=== PATIENT | female | born 1940 | race Caucasian/White ===

== ENCOUNTER 2017-04-11 16:16 | Emergency (ER) | payer MEDICARE, OTHER ==
[~2017-04-11] VITALS: Ht 167.6 cm; Wt 95.7 kg
[2017-04-11 16:25] VITALS: BP 147/79; TEMP 97.4
[2017-04-11 18:27] LABS: BASO % 0.3 % (0.0-2.0); EOS # 0.2 (0.0-0.7); EOS % 3.8 % (0-4.0); GRAN # 2.5 (1.4-6.5); GRAN % 61.3 % (42.2-75.2); LYMPH % 25.8 % (20.0-51.0); MEAN CELL VOLUME 77 fl (80.0-100.0); MEAN CORPUSCULAR HGB CONC 30 g/dl (33.0-37.0); MONO # 0.3 (0.1-0.6); MONO % 8.5 % (1.7-9.3); PLATELET COUNT 296 K/mm3 (130-400); RED BLOOD COUNT 4.33 M/mm3 (4.10-5.30); REDCELL DISTRIBUTION WIDTH-CV 28.3 % (11.5-14.5)
[2017-04-11 18:28] LABS: HEMATOCRIT 33.4 % (37.0-47.0); HEMOGLOBIN 9.9 g/dl (12.5-16.0); MEAN CORPUSCULAR HEMOGLOBIN 23 pg (27.0-31.0)
[2017-04-11 18:38] LABS: ALANINE AMINOTRANSFERASE 33 U/L (9-52); ALBUMIN 4.4 gm/dL (3.5-5.0); ALKALINE PHOSPHATASE 90 U/L (50-136); ANION GAP 11 mmol/L (7-16); AST,SGOT 17 U/L (15-37); BILIRUBIN,TOTAL 0.3 mg/dL (0.0-1.0); BLOOD UREA NITROGEN 41 mg/dL (7-17); C-REACTIVE PROTEIN < 0.5 mg/dL (0.0-0.9); CARBON DIOXIDE 16 mmol/L (22-30); CHLORIDE 112 mmol/L (98-107); CREATINE KINASE 33 U/L (30-135); CREATININE, serum 2.78 mg/dL (0.52-1.25); GLUCOSE 97 mg/dL (74-106); POTASSIUM 5.5 mmol/L (3.4-5.0); SODIUM 139 mmol/L (137-145); TOTAL PROTEIN 7.1 gm/dL (6.4-8.2)
[2017-04-11 18:42] LABS: COLLECTION METHOD CATHETER
[2017-04-11 18:48] LABS: PH 5 (5-8); SQUAMOUS EPITHELIAL None Seen /hpf; URINE APPEARANCE Clear; URINE BACTERIA None Seen /hpf; URINE BILIRUBIN Negative (NEGATIVE); URINE BLOOD Negative (NEGATIVE); URINE COLOR Yellow; URINE GLUCOSE Negative (NEGATIVE); URINE KETONE Negative (NEGATIVE); URINE LEUKOCYTE ESTERASE Negative (NEGATIVE); URINE NITRATE Negative (NEGATIVE); URINE PROTEIN(semi-quant) Negative (NEGATIVE); URINE RBC 0-2 /hpf; URINE UROBILINOGEN Negative (NEGATIVE)
[2017-04-11 18:48] LABS: TROPONIN-I < 0.012 ng/mL (0.000-0.034)
[2017-04-11] MEDS ORDERED: PRILOSEC 20MG20 MG PO (19:00)
[2017-04-11] MEDS ORDERED: METHOTREXA2.5 MG/TAB PO (19:01)
[2017-04-11] MEDS ORDERED: PRINIVIL5 MG PO (19:02)
[2017-04-11] MEDS ORDERED: REGLAN 10MG10 MG/TAB PO (19:02)
[2017-04-11] MEDS ORDERED: PRAVACHOL10 MG PO (19:02)
[2017-04-11] MEDS ORDERED: FOLIC ACID 11 MG/TA1 PO (19:02)
[2017-04-11] MEDS ORDERED: PLENDIL10 MG PO (19:03)
[2017-04-11] MEDS ORDERED: CIPRO 500MG TA500 MG PO (19:03)
[2017-04-11] MEDS ORDERED: ASPIRIN 81M81 MG/TA2 PO (19:03)
[2017-04-11] MEDS ORDERED: HECTOROL0.5 MCG PO (19:03)
[2017-04-11] MEDS ORDERED: ZOFRAN 4MG T4 MG/TAB PO (19:25)
[2017-04-11 19:40] VITALS: PULSE 72
== END 2017-04-11 19:42 | disposition home or self-care (01) ==
LOC: COL.ER 16:16
PROVIDERS: Emergency Medicine
DX: I12.9 Hypertensive chronic kidney disease with stage 1 through stage 4 chronic kidney disease, or unspecified chronic kidney disease (principal); N18.9 Chronic kidney disease, unspecified; E78.00 Pure hypercholesterolemia, unspecified; K21.9 Gastro-esophageal reflux disease without esophagitis; Z79.82 Long term (current) use of aspirin
CPT/HCPCS: J2405; J7030

== ENCOUNTER 2017-04-16 13:51 | Outpatient (RCR) | payer MEDICARE, OTHER ==
[~2017-04-16] VITALS: Ht 167.6 cm; Wt 96.1 kg
[~2017-04-16 13:51] MED LIST: ASPIRIN 81M81 MG/TA2 PO; CIPRO 500MG TA500 MG PO; FOLIC ACID 11 MG/TA1 PO; HECTOROL0.5 MCG PO; METHOTREXA2.5 MG/TAB PO; PLENDIL10 MG PO; PRAVACHOL10 MG PO; PRILOSEC 20MG20 MG PO; PRINIVIL5 MG PO; REGLAN 10MG10 MG/TAB PO; ZOFRAN 4MG T4 MG/TAB PO
[2017-04-16 14:10] VITALS: BP 130/52; PULSE 94; TEMP 97.7
[2017-04-17] MEDS ORDERED: OMNICEF 300MG300 MG PO (11:42)
== END 2017-07-15 | disposition home or self-care (01) ==
LOC: EUO
DX: D50.9 Iron deficiency anemia, unspecified (principal)
CPT/HCPCS: J2916; J7050

== ENCOUNTER 2017-04-16 17:43 | Observation (INO) | payer MEDICARE, OTHER ==
[~2017-04-16] VITALS: Ht 167.6 cm; Wt 97.0 kg
[2017-04-16 18:34] LABS: BASO % 0.2 % (0.0-2.0); EOS # 0.3 (0.0-0.7); EOS % 4.9 % (0-4.0); GRAN # 2.9 (1.4-6.5); GRAN % 46.6 % (42.2-75.2); HEMATOCRIT 41.2 % (37.0-47.0); LYMPH % 32.9 % (20.0-51.0); MEAN CELL VOLUME 79 fl (80.0-100.0); MEAN CORPUSCULAR HEMOGLOBIN 23 pg (27.0-31.0); MEAN CORPUSCULAR HGB CONC 29 g/dl (33.0-37.0); MONO # 0.9 (0.1-0.6); MONO % 15.1 % (1.7-9.3); PLATELET COUNT 367 K/mm3 (130-400); RED BLOOD COUNT 5.23 M/mm3 (4.10-5.30); REDCELL DISTRIBUTION WIDTH-CV 29.2 % (11.5-14.5)
[2017-04-16 18:36] LABS: ALANINE AMINOTRANSFERASE 23 U/L (9-52); ALKALINE PHOSPHATASE 98 U/L (50-136); ANION GAP 12 mmol/L (7-16); AST,SGOT 22 U/L (15-37); BILIRUBIN,TOTAL 0.5 mg/dL (0.0-1.0); BLOOD UREA NITROGEN 30 mg/dL (7-17); C-REACTIVE PROTEIN 0.7 mg/dL (0.0-0.9); CALCIUM 9.5 mg/dL (8.4-10.2); CARBON DIOXIDE 15 mmol/L (22-30); CHLORIDE 112 mmol/L (98-107); CREATININE, serum 2.48 mg/dL (0.52-1.25); GLUCOSE 135 mg/dL (74-106); POTASSIUM 4.8 mmol/L (3.4-5.0); SODIUM 139 mmol/L (137-145); TOTAL PROTEIN 6.7 gm/dL (6.4-8.2)
[2017-04-16 18:45] LABS: TROPONIN-I < 0.012 ng/mL (0.000-0.034)
[2017-04-16 21:42] LABS: MAGNESIUM 2.1 mg/dL (1.6-2.3)
[2017-04-16 21:44] LABS: COLLECTION METHOD CLEAN CATCH
[2017-04-16 21:56] LABS: MUCOUS Present /lpf; PH 5 (5-8); URINE APPEARANCE Cloudy; URINE BACTERIA Rare /hpf; URINE BILIRUBIN Negative (NEGATIVE); URINE BLOOD 1+ (NEGATIVE); URINE COLOR Yellow; URINE GLUCOSE Negative (NEGATIVE); URINE KETONE Negative (NEGATIVE); URINE LEUKOCYTE ESTERASE 3+ (NEGATIVE); URINE NITRATE Negative (NEGATIVE); URINE PROTEIN(semi-quant) 1+ (NEGATIVE); URINE UROBILINOGEN Negative (NEGATIVE)
[2017-04-16 22:06] VITALS: BP 155/72; PULSE 87; TEMP 98.5
[2017-04-16 23:30] VITALS: BP 152/61; PULSE 94; TEMP 98
[2017-04-17 03:41] VITALS: BP 134/56; PULSE 77; TEMP 98.2
[2017-04-17 06:45] VITALS: BP 150/66
[2017-04-17 07:20] LABS: GRAN # 4.9 (1.4-6.5); GRAN % 89.5 % (42.2-75.2); LYMPH # 0.5 (1.2-3.4); LYMPH % 8.3 % (20.0-51.0); MEAN CELL VOLUME 80 fl (80.0-100.0); MEAN CORPUSCULAR HGB CONC 29 g/dl (33.0-37.0); MONO # 0.1 (0.1-0.6); PLATELET COUNT 287 K/mm3 (130-400); RED BLOOD COUNT 4.15 M/mm3 (4.10-5.30); REDCELL DISTRIBUTION WIDTH-CV 28.9 % (11.5-14.5)
[2017-04-17 07:32] LABS: CALCIUM 8.7 mg/dL (8.4-10.2); CREATININE, serum 2.27 mg/dL (0.52-1.25); POTASSIUM 5.2 mmol/L (3.4-5.0)
[2017-04-17 07:34] LABS: HEMOGLOBIN 9.7 g/dl (12.5-16.0); MEAN CORPUSCULAR HEMOGLOBIN 23 pg (27.0-31.0)
[2017-04-17 07:42] VITALS: BP 147/91; PULSE 78; TEMP 97.5
[2017-04-17 11:42] VITALS: BP 152/68; PULSE 74; TEMP 97.4
[2017-04-17] MEDS ORDERED: OMNICEF 300MG300 MG PO (11:42)
[2017-04-17 11:44] VITALS: BP 145/62; PULSE 74
[2017-04-17 11:45] VITALS: BP 151/71; PULSE 91
== END 2017-04-17 13:33 | disposition home or self-care (01) ==
LOC: COL.ER 17:43 → MEDICAL 20:41
PROVIDERS: Emergency Medicine; Nurse Practitioner Family
DX: R53.83 Other fatigue (principal); R53.81 Other malaise; E78.5 Hyperlipidemia, unspecified; I12.9 Hypertensive chronic kidney disease with stage 1 through stage 4 chronic kidney disease, or unspecified chronic kidney disease; K21.9 Gastro-esophageal reflux disease without esophagitis; D64.9 Anemia, unspecified; M06.9 Rheumatoid arthritis, unspecified; N39.0 Urinary tract infection, site not specified; I95.1 Orthostatic hypotension; R55 Syncope and collapse; E87.5 Hyperkalemia; Z79.82 Long term (current) use of aspirin; Z88.8 Allergy status to other drugs, medicaments and biological substances; Z88.6 Allergy status to analgesic agent; Z82.61 Family history of arthritis
CPT/HCPCS: 99239; G0378; J0696; J1200; J1644; J2930; J7030